=== PATIENT | male | born 1945 | race Caucasian/White ===

== ENCOUNTER 2018-05-06 14:03 | Observation (INO) ==
[2018-05-06 14:44] LABS: BASO# 0.04 X1000 (0.0-0.2); BASO% 0.5 % (0.0-0.8); EOS# 0.15 X1000 (0.0-0.7); EOS% 1.8 % (0.0-10.0); HEMATOCRIT 45.5 % (42.0-52.0); HEMOGLOBIN 15.3 g/dL (14.0-18.0); LYMPH# 2.13 X1000 (1.2-3.4); MCH 30.3 PG (27-31); MCHC 33.6 g/dL (33-37); MCV 90.1 FL (81-99); MONO% 9.8 % (1.7-9.3); MPV 10.9 FL (7.4-10.4); NEUT# 5.06 X1000 (1.4-6.5); NEUT% 61.9 % (42.2-75.2); PLT 202 X1000 (130-400); RBC 5.05 XMIL (4.7-6.1); RDW 11.7 % (11.5-14.5); WBC 8.18 X1000 (4.8-10.8)
[2018-05-06 14:47] LABS: INR 1.15; PROTIME 15.6 Seconds (11.0-16.0)
--- NOTE | 2018-05-06 14:49 | EKG Report ---
Test Performed on : 05/06/2018 2:18:23 PM Test Reason : chest pain Blood Pressure : / mmHG Vent. Rate : 065 BPM Atrial Rate : 065 BPM P-R Int : 134 ms QRS Dur : 104 ms QT Int : 370 ms P-R-T Axes : 040 008 120 degrees QTc Int : 384 ms Normal sinus rhythm. Inferior infarct (cited on or before 17-SEP-2015) T wave abnormality, consider lateral ischemia Abnormal ECG When compared with ECG of 17-SEP-2015 17:26, premature ventricular complexes. are no longer present QT has shortened Unconfirmed Result
--- NOTE | 2018-05-06 14:53 | Diag Imaging Result Doc PS360 ---
EXAM: CHEST-2 VIEWS 05/06/2018 HISTORY: chest pain TECHNIQUE: PA and lateral chest COMMENT: There are irregular opacities in the left base. The lungs are slightly better expanded than on 09/17/2015 however the previously there was some atelectatic or fibrotic opacity in the left lower lobe. This actually appears slightly better than on the previous study. IMPRESSION: Chronic atelectasis versus fibrosis in the left lower lobe. Electronically signed by Sagar Sagastume 05/06/2018 2:51 PM
[2018-05-06 15:26] LABS: AGAP 12; ALB/GLOB RATIO 1.6; ALBUMIN 4.1 g/dL (3.5-5.0); ALKALINE PHOSPHATASE 93 U/L (32-122); BUN 24 mg/dL (8-22); CHLORIDE 108 mmol/L (98-107); CK PROFILE 140 U/L (24-204); COSMO 287; CREATININE 0.9 mg/dL (0.7-1.2); ESTIMATED GFR > 60; GLUCOSE 161 mg/dL (70-104); GOT 18 U/L (10-34); GPT 21 U/L (10-44); POTASSIUM 4.5 mmol/L (3.5-5.1); SODIUM 140 mmol/L (136-145); TCO2 20 mmol/L (25-35); TOTAL BILIRUBIN 0.58 mg/dL (0.20-1.00); TOTAL PROTEIN 6.6 g/dL (6.3-8.3)
--- NOTE | 2018-05-06 19:27 | PROVIDER DOCUMENTATION ---
This chart was entered by Heather Mckeon Scribe, acting as scribe for Diego Segura MD. HPI-Chest Pain - General Chief Complaint: Chest Pain Stated Complaint: CHEST PAINS/HEART PT Time Seen by Provider: 05/06/18 17:53 Source: patient Allergies/Adverse Reactions: Patient Allergies Allergy/AdvReac Type Severity Reaction Status Date / Time No Known Allergies Allergy Verified 09/17/15 18:42 Home Medications: Home Medication List Medication Instructions Recorded Confirmed Last Taken Type Acetazolamide E.r. [Diamox Sequels] 500 mg PO QAM 09/17/15 09/17/15 09/17/15 History Insulin Aspart [Novolog] 100 unit SQ TID 09/17/15 09/17/15 09/17/15 History Insulin Detemir [Levemir] 30 unit SUBQ QPM 09/17/15 09/17/15 09/16/15 History LISINOpril [Prinivil] 5 mg PO DAILY 09/17/15 09/17/15 09/17/15 History Metformin [Glucophage] 500 mg PO QPM 09/17/15 09/17/15 09/16/15 History Metoprolol [Lopressor] 25 mg PO DAILY 09/17/15 09/17/15 09/17/15 History Tamsulosin [Flomax] 0.4 mg PO BID 09/17/15 09/17/15 09/17/15 History Cephalexin 500 mg PO TID #63 capsule 09/21/15 Unknown Rx Ibuprofen 800 mg PO TID #15 tablet 09/21/15 Unknown Rx Pantoprazole [Protonix] 40 mg PO DAILY@0700 #14 tablet 09/21/15 Unknown Rx - History of Present Illness-CP Nature of Presenting Problem: pt is a 73 yr old male presenting with chest pain onset this afternoon, resolved after sublingual nitro taken . pt took ASA this AM with usual morning medications. pt denies nausea/vomiting, no shortness of breath or diaphoresis. reports pt was pale at onset but resolved also. hx of CABG Location: reports: substernal Chest Pain Radiation: reports: no radiation Quality of Pain: reports: pressure, sharp Severity in ED: moderate Onset/Duration: this afternoon Timing: resolved prior to arrival Context/Activities at Onset: reports: light activity Modifying Factors: improves with: other medication (nitro- resolved) Associated Symptoms: denies: diaphoresis, nausea, shortness of breath, vomiting Nitro Today/Relief: 0.4 mg x 1, provided at home, complete relief Aspirin Treatment Today: 325 mg x 1, provided at home Similar Symptoms Previously?: Yes Recently Seen Here or By Another Healthcare Provider: No Review of Systems - Adult - REVIEW OF SYSTEMS - ADULT Constitutional: denies: fever, fatique Eyes: denies: blurred vision, double vision Ears, Nose, Mouth & Throat: reports: no symptoms reported Cardiovascular: reports: chest pain. denies: edema, palpitations, syncope Respiratory: denies: cough, dyspnea on exertion, shortness of breath Gastrointestinal: denies: nausea, vomiting Genitourinary: reports: no symptoms reported Musculoskeletal: denies: back pain, muscle aches, neck pain Integumentary: reports: no symptoms reported Neurological: denies: dizziness/vertigo, headache/migraines, syncope Psychiatric: reports: no symptoms reported Endocrine: reports: no symptoms reported Hematologic/Lymphatic: reports: no symptoms reported Allergic/Immunologic: reports: no symptoms reported All Other Systems: Reviewed and Negative Past History - Adult - PAST MEDICAL HISTORY-ADULT Review of Records: reports: Old Records Reviewed, Nursing Assessment Review, Medications Reviewed, Social history reviewed & non-contributory. Major Childhood Illnesses: reports: denies history Cardiovascular: reports: cardiac disease, CAD, HTN, IN, PAD Respiratory: reports: other (L sided diaphragm paralysis) Gastrointestinal: reports: cancer Obstetrical/Gynecological: reports: denies history Genitourinary: reports: other (prostate biopsy; BPH; bacteremia p biopsy) Musculoskeletal: reports: denies history Neurological: reports: denies history Endocrine/Immune: reports: Diabetes Other Conditions: reports: denies history - PRIOR SURGERIES/PROCEDURES Surgical/Procedure History: reports: CABG, bowel surgery (colon resection), other (prostate biopsy) - IMMUNIZATION STATUS Childhood Immunizations: See Nurse Assessment Flu Vaccine: See Nurse Assessment - FAMILY HISTORY Family History: reviewed, not pertinent - SOCIAL HISTORY Smoking: denies Substance Use: denies Living Situation: family Physical Exam-General - PHYSICAL EXAM-ADULT Initial Vital Signs Reviewed: Yes - CONSTITUTIONAL General Appearance: appears well, alert, no apparent distress - EYES Eyes: PERRL/EOMI - HEAD, EARS, NOSE, MOUTH & THROAT HENMT: normocephalic/atraumatic, moist mucous membranes, normal ENT inspection - NECK Neck: non-tender, full range of motion, supple, normal inspection - RESPIRATORY Respiratory: chest non-tender, lungs clear, normal breath sounds - CARDIOVASCULAR Cardiovascular: normal peripheral pulses, regular rate, rhythm, no edema - GASTROINTESTINAL (ABDOMEN) Abdominal Exam: normal bowel sounds, non tender, soft - LYMPHATIC Lymphatic: no adenopathy - MUSCULOSKELETAL Back Exam: normal inspection, no CVA tenderness, no vertebral tenderness Extremity: normal range of motion, non-tender, normal gait, normal inspection - SKIN Integumentary: normal color, normal turgor, warm/dry - NEUROLOGIC Neurologic: grossly normal, no motor/sensory deficits - PSYCHIATRIC Psych/Mental Status: normal mood/affect, normal thought content, normal thought process, oriented x 3 Progress - PLAN OF CARE/RESULTS Progress/Plan/Lab Results: Vital Signs - 8 hr 05/06/18 14:18 Temperature 98.2 F Pulse Rate 64 Respiratory Rate 16 Blood Pressure 143/72 O2 Sat by Pulse Oximetry 99 Laboratory Results - last 24 hr 05/06/18 05/06/18 05/06/18 14:24 14:24 14:24 WBC 8.18 RBC 5.05 Hgb 15.3 Hct 45.5 MCV 90.1 MCH 30.3 MCHC 33.6 RDW Std Deviation 11.7 Plt Count 202 MPV 10.9 H Immature Gran % (Auto) 0.0 Neut % (Auto) 61.9 Lymph % (Auto) 26.0 [place] % (Auto) 9.8 H Eos % (Auto) 1.8 Baso % (Auto) 0.5 Immature Gran # (Auto) 0.00 Neut # (Auto) 5.06 Lymph # (Auto) 2.13 [place] # (Auto) 0.80 H Eos # (Auto) 0.15 Baso # (Auto) 0.04 PT INR PTT (Actin FS) Sodium 140 Potassium 4.5 Chloride 108 H Carbon Dioxide 20 L Anion Gap 12 BUN 24 H Creatinine 0.9 Estimated GFR/1.73 m2 > 60 BUN/Creatinine Ratio 27 Glucose 161 H Calculated Osmolality 287 Calcium 9.0 Total Bilirubin 0.58 AST 18 ALT 21 Alkaline Phosphatase 93 Creatine Kinase 140 Troponin T Ree-I-Ghiwvrtjyth Pept 102 Total Protein 6.6 Albumin 4.1 Globulin 2.5 Albumin/Globulin Ratio 1.6 05/06/18 05/06/18 14:24 14:24 WBC RBC Hgb Hct MCV MCH MCHC RDW Std Deviation Plt Count MPV Immature Gran % (Auto) Neut % (Auto) Lymph % (Auto) [place] % (Auto) Eos % (Auto) Baso % (Auto) Immature Gran # (Auto) Neut # (Auto) Lymph # (Auto) [place] # (Auto) Eos # (Auto) Baso # (Auto) PT 15.6 INR 1.15 PTT (Actin FS) 30.0 Sodium Potassium Chloride Carbon Dioxide Anion Gap BUN Creatinine Estimated GFR/1.73 m2 BUN/Creatinine Ratio Glucose Calculated Osmolality Calcium Total Bilirubin AST ALT Alkaline Phosphatase Creatine Kinase Troponin T < 0.010 [id number] Pept Total Protein Albumin Globulin Albumin/Globulin Ratio Orders Category Date Time Status Cardiac Monitoring DIRECTED Care 05/06/18 14:24 Active Oxygen Therapy- ED Nursing DIRECTED Care 05/06/18 14:24 Active Saline Loc NOW Care 05/06/18 14:24 Active CHEST-2 VIEWS [RAD] Stat Exams 05/06/18 14:24 Completed CBC WITH ELECTRONIC DIFF [HEME] Stat Lab 05/06/18 14:24 Completed CK PROFILE [SP CHEM] Stat Lab 05/06/18 14:24 Completed COMPREHENSIVE METABOLIC PANEL [CHEM] Stat Lab 05/06/18 14:24 Completed PRO B-NATRIURETIC PEPTIDE Stat Lab 05/06/18 14:24 Completed PROTIME WITH INR [COAG] Stat Lab 05/06/18 14:24 Completed PTT [COAG] Stat Lab 05/06/18 14:24 Completed TROPONIN T Stat Lab 05/06/18 14:24 Completed CP/SOB/Palp >45 yrs of Age Stat Oth 05/06/18 14:23 Ordered EKG [EKG] Stat Ther 05/06/18 14:24 Draft Result Diagrams: 05/06/18 14:24 05/06/18 14:24 - REASSESSMENT Reassessment #1 Time Reassessed: 19:25 Status: unchanged (heart score:6) - EKG 1 Time of EKG reading by physician:: 14:18 EKG Read and Signed by:: Diego Segura EKG Interpretation (*Must complete 3 of following elements*): Abnormal ( inferoir infarct-age undetermined, t wave abnormality, consider lateral ischemia ) Rate: 65 Rhythm: nsr [place]: normal QRS: normal MD Interval: normal - XRAY 1 XRAY Study: Chest Impression: Abnormal ( Signed EXAM: CHEST-2 VIEWS 05/06/2018 HISTORY: chest pain TECHNIQUE: PA and lateral chest COMMENT: There are irregular opacities in the left base. The lungs are slightly better expanded than on 09/16 however the previously there was some atelectatic or fibrotic opacity in the left lower lobe. This actually appears slightly better than on the previous study. IMPRESSION: Chronic atelectasis versus fibrosis in the left lower lobe. Electronically signed by Sagar Sagastume 05/06/2018 2:51 PM 05/06/18 1451 Interpreting Physician: Sagar Sagastume MD Dictated Date/Time: 1450 cc: Schuyler Weston MD; Eder Perez MD) Comparison with other Films: changes noted (09/17/15) Departure - Departure Date of Disposition Decision: 05/06/18 Time of Disposition Decision: 19:26 DIAGNOSIS: Chest pain Qualifiers: Chest pain type: unspecified Qualified Code(s): R07.9 - Chest pain, unspecified Disposition: ADMITTED INPATIENT 09 Certified Medical Emergency: Emergent Condition: Stable - Critical Care Note This patient required my direct & personal management of CC.: No Attestation - Physician/ KRISTIAN Attestation The physician spent face to face time with patient:: Yes Advanced Practice Provider documentation review:: Supervising physician onsite and consulted in the evaluation and care of this patient. The physician did have a face to face encounter with the patient. This chart was documented by the indicated scribe, (Heather Mckeon Scribe) and accurately reflects the services I performed and decisions made by , Diego Segura MD, as attested by the provider's signature.
--- NOTE | 2018-05-06 21:17 | HISTORY AND PHYSICAL ---
REASON FOR ADMISSION: Chest pain today of 1 day's duration. HISTORY OF PRESENT ILLNESS: Keny Dietrich is a pleasant 73-year-old man with a past medical history of coronary artery disease, type 2 diabetes, insulin requiring, hypertension, hyperlipidemia, and colon cancer status post resection 2 years ago. He comes in today complaining of dull retrosternal chest pain similar the prior chest pain he had when he has had an [place] in the past. It does not radiate anywhere. He says that it occurred while he was out about walking while shopping. He took a nitroglycerin, and the pain dissipated after 15 minutes. His , who was there, noticed that he was a bit pale. No diaphoresis was noted. There was no mention of any nausea or vomiting. No palpitations. The patient denies any antecedent history of PND, orthopnea, leg swelling, extremity redness or pain, cough, fever or chills. The pain, when it occurs, is about 8/10. After resolution, it was a 0/10. REVIEW OF SYSTEMS: The patient denies any GI or complaints. No focal neurological complaints. Positive findings noted as above. ALLERGIES: No known allergies. HOME MEDICATIONS: Have not been reconciled; however, from his old records, he is on Diamox, NovoLog, Levemir, lisinopril, metformin, metoprolol, Flomax, ibuprofen, Protonix and cephalexin. PAST SURGICAL HISTORY: He has had a CABG. He has had a colon resection. He has had stents. He has also had a prostate biopsy. 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 FAMILY HISTORY: Notable for diabetes, colon cancer, heart disease, and arrhythmias in first- degree relatives. SOCIAL HISTORY: He is . Does not smoke, drink or use illicit drugs. LAB WORK: White count is 8000, hemoglobin and hematocrit 15 and 45, platelets 202. Normal differential. BUN 24, creatinine 0.9. Bicarb is 20. Glucose 161. First set of troponins negative. CK is 140. PT/PTT normal. Chest film - chronic atelectasis with fibrosis in the left lower lobe. EKG noted by ER staff showed questionable Q-waves versus inferior infarct, age undetermined, with nonspecific T-wave abnormalities in lateral leads. Rate 65, normal sinus rhythm. PHYSICAL EXAMINATION: GENERAL: Pleasant, elderly man. VITAL SIGNS: Blood pressure 145/74, heart rate 59, respirations 16, temperature 98.2. He is 100% on room air. GENERAL: The patient is alert and oriented to person, place and time. Normal mood and affect. HEENT: Head is normocephalic, atraumatic. Eyes PERRL, EOMI. Conjunctivae are pale. ENT: Oropharynx examination is grossly unremarkable. No edema,clubbing and No signs of cyanosis. NECK: Supple. No JVD, carotid bruit or thyromegaly. CHEST: Good air entry in both lung burt. Clear to auscultation. CARDIOVASCULAR: First and second heart sounds heard. No gallops, murmurs or rubs. Rhythm is regular. ABDOMEN: Protuberant and soft. No tenderness or organomegaly. Bowel sounds are normal. No bruit heard. RECTAL: Exam deferred at this time. EXTREMITIES: The patient has 2+ pulses distally in all extremities. They are symmetrical and regular. No edema, clubbing or cyanosis. NEUROLOGIC: No gross focal deficits. SKIN: Intact with no breakdown, lesions or erythema. MUSCULOSKELETAL: Grossly normal. ASSESSMENT/PLAN: 1. Chest pain syndrome, very probably anginal in nature. Will do serial cardiac enzymes. If negative, and the patient is chest pain free, will schedule the patient for a stress test in the morning. Echocardiogram will also need to be done. The patient's last cardiac evaluation was over 2 years ago. Also, will address all risk factors and modify them optimally. 2. Type 2 diabetes. Check A1c. Depending on patient's A1c, will modify insulin requirements. We also can get his medications reconciled. Will hold off metformin in case the patient requires a cardiac catheterization. 3. Hypertension, currently stable; however, if systolic blood pressure is greater than 140, will consider increasing dose of lisinopril. 4. Hyperlipidemia. Cannot recall the patient being on an statin. Will start the patient on a potent statin, i.e., Lipitor or Crestor. Will also check a lipid panel. 5. I will also consult cardiology for further input regarding this patient's care, being that the patient has documented coronary artery disease. cc: MD Obdulio Law
[2018-05-06] MEDS ORDERED: TYLENOL PO PRN (21:47)
[2018-05-06] MEDS ORDERED: MORPHINE IV PRN (21:47)
[2018-05-06] MEDS ORDERED: ZOFRAN IV PRN (21:47)
[2018-05-06 22:23] LABS: HEMOGLOBIN A1C 7.9 % (4.8-6.0)
[2018-05-06] MEDS: LIPITOR PO SCH (22:30)
[2018-05-06] MEDS: LOVENOX SUBQ SCH (23:14)
[2018-05-07] MEDS: PRILOSEC PO SCH (06:57)
[2018-05-07 07:55] LABS: BASO# 0.04 X1000 (0.0-0.2); BASO% 0.5 % (0.0-0.8); EOS# 0.19 X1000 (0.0-0.7); EOS% 2.4 % (0.0-10.0); HEMATOCRIT 44.5 % (42.0-52.0); LYMPH# 2.16 X1000 (1.2-3.4); LYMPH% 26.9 % (20.5-51.1); MCH 30.5 PG (27-31); MCHC 33.7 g/dL (33-37); MCV 90.6 FL (81-99); MONO# 0.78 X1000 (0.11-0.59); MONO% 9.7 % (1.7-9.3); MPV 11.2 FL (7.4-10.4); NEUT# 4.87 X1000 (1.4-6.5); NEUT% 60.5 % (42.2-75.2); PLT 173 X1000 (130-400); RBC 4.91 XMIL (4.7-6.1); RDW 12.1 % (11.5-14.5); WBC 8.04 X1000 (4.8-10.8)
[2018-05-07 08:26] LABS: CHOLESTEROL 159 mg/dL (0-200); HDL 52 mg/dL (35-55); LDL 82 mg/dL; TRIGLYCERIDES 125 mg/dL (39-160); VLDL 25 mg/dL
[2018-05-07] MEDS: ASPIRIN PO SCH (12:18)
[2018-05-07] MEDS: PRINIVIL PO SCH (12:20)
--- NOTE | 2018-05-07 12:41 | PROGRESS NOTE ---
DATE: 05/07/2018 SUBJECTIVE: This patient is feeling better. No more symptoms since yesterday. Apparently, also he started burping and the pain went away, but he is not quite sure if this is related with the chest pain. He has a history of coronary artery disease, status post bypass surgery. Troponin has been negative x3. Cardiology Department has been consulted. If Cardiology Department recommends to discharge this patient and follow up as an outpatient, I will send him home. OBJECTIVE: Vital Signs: Temperature 98.2, pulse 70, respiratory rate 14, blood pressure 141/69, oxygen saturation 98 on room air. HEENT: Head normocephalic. No trauma. PERRLA. Neck: Supple. No JVD. No masses. Central trachea. Chest: Clear to auscultation. No wheezing. No rales. Abdomen: Soft, nontender, nondistended. No hepatosplenomegaly. Extremities: No edema. No clubbing. No cyanosis. Neurological: The patient is alert and oriented x3. No focal deficits. LABORATORY: WBC 8, hemoglobin 15.0, hematocrit 44.5, platelets 173. Glucose 224, troponins negative x3. ASSESSMENT AND PLAN: 1. Chest pain. Cardiology Department has been consulted, troponin has been negative x3. He had a coronary artery bypass graft I think 4 years ago. He is not having more chest pain. No shortness of breath. Will wait for Cardiology recommendations. 2. Type 2 diabetes. Hemoglobin A1c 7.9. I have placed this patient back on her home medications. Continue with sliding scale insulin and pattern of blood sugar. 3. Hypertension, stable. 4. Hyperlipidemia. We have placed this patient on statins. cc: Tadeo Pires MD
[2018-05-07] MEDS: HUMULIN R SUBQ SCH ×2 (16:10→21:05)
[2018-05-07] MEDS ORDERED: LEVEMIR SUBQ SCH (21:00)
[2018-05-07] MEDS: FLOMAX PO SCH (21:05)
[2018-05-07] MEDS: LIPITOR PO SCH (21:05)
--- NOTE | 2018-05-07 21:07 | CONSULTATION ---
DATE OF CONSULTATION: 05/07/2018 IMPRESSION: 1. Episode of chest discomfort possibly angina occurring with exertion of walking around department store. Symptoms were relieved after 1 sublingual nitroglycerin. ECG without acute changes and serial cardiac enzymes negative. 2. Atherosclerotic coronary disease. A). Patient is status post atherosclerotic coronary disease. 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 B). Status post coronary bypass grafting 2 years ago in [place]. 3. Hyperlipidemia treated with atorvastatin. 4. Hypertension. 5. Type 2 diabetes mellitus. RECOMMENDATIONS: Patient very much wishes to be discharged to have further evaluation as an outpatient. This certainly appears to be reasonable given limited nature of his recent chest symptoms and negative cardiac enzymes. I advised him that he should have outpatient stress myocardial perfusion study. HISTORY: This 73-year-old white male with past history of atherosclerotic coronary disease as outlined above, hyperlipidemia, type 2 diabetes mellitus, and hypertension was admitted to emergency room yesterday afternoon after an episode of chest discomfort. He relates that yesterday he and his were walking in a local department store. They had been walking around about 15 minutes when he developed a numb feeling in the center of his chest. He took a sublingual nitroglycerin and discomfort seemed to improve after 5 to 10 minutes. He came to the emergency room for evaluation and was subsequently admitted for further workup. He has not any further chest discomfort. He really has not had much in way of chest symptoms since his bypass surgery. He is active physically and exercised on a regular basis. He is a nonsmoker. He expresses desire to go home and return for outpatient stress testing when this was discussed. PAST MEDICAL HISTORY: 1. Atherosclerotic coronary disease as outlined above. 2. Hypertension. 3. Hyperlipidemia. 4. Type 2 diabetes mellitus. 5. Colon cancer. 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 ALLERGIES: No known drug allergies. MEDICATIONS PRIOR TO ADMISSION: As listed. SOCIAL HISTORY: He is . He does not smoke or drink alcohol. He continues to work. He has Medicare A but not Medicare B or D. He utilizes the [facility] for as much of his outpatient medical care as possible. He served in [employer] during the [place] War era. FAMILY HISTORY: Positive for coronary disease and colon cancer. REVIEW OF SYSTEMS: Pulmonary: Negative. Gastrointestinal: Negative. Constitutional: Negative. Remainder review of systems negative/noncontributory with 14 total systems reviewed. PHYSICAL EXAMINATION: General: This is a pleasant, older white male in no distress. Vital Signs: Blood pressure 141/69, heart rate 70 and regular, oxygen saturation 98% on room air. HEENT: Extraocular movements intact. Mucous membranes are moist. Neck: Supple without jugular venous distention. There are no carotid bruits. Chest: Clear to auscultation bilaterally. Cardiac Exam: Reveals a regular rate and rhythm without appreciable murmur or gallop. Abdomen: Soft, nontender. Bowel sounds are normal. Extremities: Without edema. Neurologic: Reveals him to be alert and fully oriented. Speech is fluent. He moves all 4 extremities equally well. Skin: Warm and dry. Psychiatric: Reveals mood to be appropriate. DATA: 12 lead EKG demonstrates sinus rhythm, old inferior infarct and T-wave abnormality, consider lateral ischemia. LABORATORY DATA: Includes white blood cell count 8.04, hematocrit 44.5, hemoglobin 15.0, platelet count 173,000. Initial CPK 140, initial troponin less than 0.01, followup troponin less than 0.01. Sodium 140, potassium 4.5, chloride 108, carbon dioxide 20, BUN 24, creatinine 0.9, glucose 161. Pro time 15.6, INR 1.15, PTT 30. Total cholesterol 159, triglycerides 125, HDL cholesterol 52, LDL cholesterol 82. cc: Leon Damon MD
[2018-05-08] MEDS: HUMULIN R SUBQ SCH (06:48)
[2018-05-08] MEDS: PRILOSEC PO SCH (06:48)
[2018-05-08 07:43] LABS: AGAP 10; BUN 28 mg/dL (8-22); CALCIUM 8.2 mg/dL (8.8-10.2); CHLORIDE 108 mmol/L (98-107); COSMO 288; CREATININE 0.9 mg/dL (0.7-1.2); ESTIMATED GFR > 60; GLUCOSE 225 mg/dL (70-104); POTASSIUM 4.2 mmol/L (3.5-5.1); SODIUM 138 mmol/L (136-145); TCO2 20 mmol/L (25-35)
[2018-05-08 08:38] VITALS: BP 139/64
[2018-05-08] MEDS: ASPIRIN PO SCH (08:45)
[2018-05-08] MEDS: PRINIVIL PO SCH (08:45)
[2018-05-08] MEDS: FLOMAX PO SCH (08:45)
[2018-05-08] MEDS: LOVENOX SUBQ SCH (08:45)
--- NOTE | 2018-05-08 09:43 | ECHO REPORT ---
ORDER DATE: 05/06/2018 MEASUREMENTS: Left ventricular end-diastolic diameter 5.3, end systolic 3.5, septal thickness 1.1, posterior wall thickness 0.9, aortic root 3.2, left atrium 4.2. SUMMARY: 1. Technically difficult study due to limited acoustic window quality. 2. Aortic valve is trileaflet and demonstrates very mild sclerotic change with normal aortic valve opening evident. Peak gradient across the aortic valve is 10-15 mmHg. There is mild aortic regurgitation. Mitral, tricuspid, and pulmonic valves are without evidence of structural abnormality with very mild mitral regurgitation. Aortic root is normal in size. 3. Normal left ventricular dimensions demonstrated. Estimated left ventricular ejection fraction appears to be at least 60%. Hypokinesis of the basal inferior wall is suggested. No other wall motion abnormalities are appreciated. Left atrium is mildly enlarged. Right atrium and right ventricle are normal in size with normal right ventricular systolic function. 4. No pericardial effusion. 5. Appearance of inferior vena cava suggests normal central venous pressure. cc: MD Rea Rosen MD
--- NOTE | 2018-05-08 14:50 | DISCHARGE SUMMARY ---
ADMISSION DATE: 05/06/2018 DISCHARGE DATE: 05/08/2018 DISCHARGE DIAGNOSIS: 1. Chest pain in a patient with a past medical history off coronary artery bypass graft. 2. Hypertension. 3. Hyperlipidemia. 4. Type 2 diabetes. CONSULTS: Cardiology Department Leon Morrison. HOSPITAL COURSE: 73-year-old male with a past medical history of coronary artery disease status post CABG, type 2 diabetes, hypertension, hyperlipidemia and apparently colon cancer status post resection 2 years ago. He came and was admitted on 05/06/2018 due to chest pain at the level of the sternal area. The patient states that these kind of pain was similar to the pain that he experienced a few years ago due to an HI. It was not radiated. It happened when he was walking while shopping. He took nitroglycerin and the pain disappeared after 50 minutes. His who was there noticed this patient a little bit pale, no diaphoresis, no nausea, no vomiting, no palpitation, as per the patient interrogating a little bit better he says that after burping the pain got better, he was hospitalized and we ran some tests including troponins which were negative x3. Cardiology Department evaluated this patient and they recommend a outpatient stress myocardial perfusion study, this patient is completely asymptomatic today and actually he has not been having any kind of pain since that episode, vital signs are stable. This is why we decided to discharge this patient today 05/08/2018 with a strict followup by Cardiology Department and he needs to call for an appointment to get the stress test done. At the moment of discharge this patient was on a stable medical condition tolerating p.o., ambulating and with no pain at all. PHYSICAL EXAM: Vital signs: Temperature 97.7 degrees, pulse 77, respiratory rate 14, blood pressure 139/64, oxygen saturation 97 on room air. HEENT: Head normocephalic, no trauma. PERRLA. Neck: Supple. No JVD. No masses. Central trachea. Chest: Clear to auscultation. No wheezing. No rales. Abdomen: Soft, nontender, nondistended. No hepatosplenomegaly. Extremities: No edema, no clubbing, no cyanosis. Neurologic: The patient was alert and oriented x3. No focal deficits. PROCEDURES PERFORMED: Echocardiogram done on 05/06/2018 he got a normal left ventricular dimensions with an ejection fraction around 60%, appearance of inferior vena cava suggests normal central venous pressure, mild aortic regurgitation and the rest of the study was basically unremarkable. LABORATORY: Sodium 138, potassium 4.2, chloride 108, bicarbonate 20, BUN 28, creatinine 0.9, glucose 225, calcium 8.2. DISCHARGE MEDICATIONS: Tamsulosin 0.4 mg p.o. b.i.d., metformin 500 mg p.o. q.p.m., lisinopril 5 mg p.o. daily, Levemir 40 units subcu q.p.m., insulin aspart as directed 3 times a day, acetazolamide ER 500 mg p.o. q.a.m., omeprazole 20 mg p.o. daily, aspirin 81 mg p.o. daily and Lipitor 40 mg p.o. at bedtime. TIME SPENT: 35 minutes. cc: Tadeo Pires MD
--- NOTE | 2018-05-09 07:06 | EKG Report ---
Test Performed on : 05/07/2018 06:48:31 AM Test Reason : chest pain Blood Pressure : / mmHG Vent. Rate : 066 BPM Atrial Rate : 066 BPM P-R Int : 150 ms QRS Dur : 098 ms QT Int : 414 ms P-R-T Axes : 037 037 210 degrees QTc Int : 434 ms Normal sinus rhythm. T wave abnormality, consider inferior ischemia Abnormal ECG When compared with ECG of 06-MAY-2018 14:18, (Unconfirmed) Criteria for Inferior infarct are no longer present T wave inversion now evident in Inferior leads T wave inversion less evident in Anterolateral leads QT has lengthened Confirmed by Debora WEINBERG, Hai Scanlon ([id number]) on 05/09/2018 9:37:21 PM
== END 2018-05-08 10:47 | disposition home or self-care (01) ==
LOC: ED 14:03 → 3N 21:01 → SUATTDRO 21:01 → INTOOBSV 21:01
PROVIDERS: ATTEND Internal Medicine
CPT/HCPCS: 71020; 71046; 80048; 80053; 80061; 82550; 82948; 83036; 83880; 84484; 85025; 85610; 85730; 93005; 93010; 93306; 94761; 99285; A9270; G0378; J1650; XXXXX